=== PATIENT | female | born 2000 | race Caucasian/White ===

== ENCOUNTER 2021-05-12 21:02 | Inpatient (IN) | payer MEDICAID, OTHER ==
[2021-05-12] MEDS ORDERED: LACTATED RINGERS 1,000 ML ONE (22:13)
[2021-05-12] MEDS ORDERED: METHYLERGONOVINE MALEATE 0.2 MG/ML VIAL IM PRN ×2 (22:22→22:27)
[2021-05-12] MEDS ORDERED: miSOPROStol 200 MCG TAB PR PRN ×2 (22:22→22:27)
[2021-05-12] MEDS ORDERED: LIDOCAINE (2%) 20 MG/1 ML VIAL 20 ML MDV INFILTRATI ONE ×2 (22:22→22:27)
[2021-05-12] MEDS ORDERED: TERBUTALINE 1 MG/1 ML INJ SUB-Q PRN ×2 (22:22→22:27)
[2021-05-12] MEDS ORDERED: LOPERAMIDE 2 MG CAP PO PRN ×2 (22:22→22:27)
[2021-05-12] MEDS ORDERED: ACETAMINOPHEN 325 MG TAB PO PRN (22:22)
[2021-05-12] MEDS ORDERED: BUTORPHANOL 2 MG/1 ML INJ IV PRN ×2 (22:22)
[2021-05-12] MEDS ORDERED: OXYTOCIN 10 UNIT/1 ML INJ IM PRN ×2 (22:22→22:27)
[2021-05-12] MEDS ORDERED: CARBOPROST TROMETHAMINE 250 MCG/1 ML INJ IM PRN ×2 (22:22→22:27)
[2021-05-12] MEDS ORDERED: ONDANSETRON 4 MG/2 ML INJ IV PRN (22:22)
[2021-05-12] MEDS ORDERED: MINERAL OIL 30 ML ORAL LIQD PO PRN ×2 (22:22→22:27)
[2021-05-12] MEDS ORDERED: ePHEDrine SULFATE 50 MG/1 ML INJ IV PRN ×2 (22:22→22:27)
[2021-05-12] MEDS ORDERED: LACTATED RINGERS 1,000 ML IV SCH ×2 (22:30)
[2021-05-12] MEDS ORDERED: OXYTOCIN DRIP 30 UNITS/500 ML BAG IV SCH ×4 (23:00)
[2021-05-12 23:45] LABS: Hematocrit 34.7 % (30.3-42.9); Hemoglobin 12.5 gm/dl (10.1-14.3); Mean Corpuscular HGB Conc 36 % (30-34); Mean Corpuscular Volume 97 fl (79-97); Platelet Count 191 K/mm3 (140-440); Red Cell Distribution Width 13.8 % (13.2-15.2)
[2021-05-12 23:52] LABS: Bilirubin,Urine NEG (Negative); Blood,Urine MOD (Negative); Color,Urine Straw (Yellow); Protein,Urine <15 mg/dL mg/dL (Negative); Urobilinogen,Urine < 2.0 mg/dL (<2.0)
[2021-05-13] MEDS ORDERED: LIDOCAINE (2%) 20 MG/1 ML VIAL 20 ML MDV INFILTRATI ONE (02:08)
[2021-05-13] MEDS ORDERED: PROMETHAZINE 25 MG RECT SUPP PR PRN (02:42)
[2021-05-13] MEDS ORDERED: MAGNESIUM HYDROXIDE (MOM) ORAL LIQD UDC PO PRN (02:42)
[2021-05-13] MEDS ORDERED: ONDANSETRON 4 MG/2 ML INJ IV PRN (02:42)
[2021-05-13] MEDS ORDERED: PROMETHAZINE 25 MG TAB PO PRN (02:42)
[2021-05-13] MEDS ORDERED: diphenhydrAMINE 25 MG CAP PO PRN (02:42)
[2021-05-13] MEDS ORDERED: LANOLIN/ZINC/DIMETHICONE (LANSINOH) 7 GM TP PRN (02:42)
[2021-05-13] MEDS ORDERED: WITCH HAZEL/ GLYCERIN PAD TP PRN (02:42)
[2021-05-13] MEDS ORDERED: oxyCODONE /ACETAMINOPHEN 5-325MG TAB PO PRN (02:47)
[2021-05-13] MEDS ORDERED: ACETAMINOPHEN 325 MG TAB PO PRN (02:53)
[2021-05-13] MEDS ORDERED: HYDROcodone/ACETAMINOPHEN 5-325 MG TAB PO PRN (02:53)
--- NOTE | 2021-05-13 02:59 | History and Physical Report ---
History of Present Illness Date of examination: 05/13/21 Date of admission: 05/13/21 00:35 Chief complaint: labor History of present illness: Patient is a 20-year-old female 2 para 1-0-0-1 EDC is 05/26/2021. She has been cared for at the [facility]. She had 4 visits at the clinic her hematocrit was 35.8%. Her HIV test was nonreactive her quad screen was negative blood type O+ RPR nonreactive hepatitis B was nonreactive rubella was immune Chlamydia and gonorrhea tests were negative HIV test repeat was also negative. The patient presented as a patient in labor today. Past medical history was negative and family medical history was negative her infection history was also negative. Expectant vaginal delivery. Past History Past Medical History: no pertinent history Past Surgical History: no surgical history Family/Genetic History: none Social history: - Obstetrical History Expected Date of Delivery: 05/30/21 Actual Gestation: 37 Week(s) 4 Day(s) : 2 Para: 1 Hx # Term Pregnancies: 1 Number of Pregnancies: 0 Spontaneous Abortions: 0 Induced : 0 Number of Living Children: 1 Medications and Allergies Allergies Allergy/AdvReac Type Severity Reaction Status Date / Time No Known Allergies Allergy Unverified 08/31/15 18:00 Home Medications Medication Instructions Recorded Confirmed Last Taken Type One Daily Tablet 1 tab PO DAILY 05/13/21 05/13/21 05/11/21 20:00 History Active Meds: Active Medications Acetaminophen (Acetaminophen 325 Mg Tab) 650 mg PO Q4H PRN PRN Reason: Pain, Mild (1-3) Butorphanol Tartrate (Butorphanol 2 Mg/1 Ml Inj) 1 mg IV Q2H PRN PRN Reason: Pain, Moderate(4-6) LABOR PAIN Butorphanol Tartrate (Butorphanol 2 Mg/1 Ml Inj) 2 mg IV Q2H PRN PRN Reason: Pain , Severe (7-10) Carboprost Tromethamine (Carboprost Tromethamine 250 Mcg/1 Ml Inj) 250 mcg IM ONCE PRN PRN Reason: Uterine Bleeding Ephedrine Sulfate (Ephedrine Sulfate 50 Mg/1 Ml Inj) 10 mg IV Q2M PRN PRN Reason: Hypotension Oxytocin/Sodium Chloride (Pitocin/Ns 30 Unit/500ml) 30 units in 500 mls @ 2 mls/hr IV TITR ETIENNE; Protocol Last Admin: 05/13/21 00:51 Dose: 2 ml/hr, 2 mls/hr Documented by: Lactated Ringer's (Lactated Ringers) 1,000 mls @ 125 mls/hr IV DIRECT ETIENNE Oxytocin/Sodium Chloride (Pitocin/Ns 30 Unit/500ml) 30 units in 500 mls @ 40 mls/hr IV TITR ETIENNE; Protocol Loperamide HCl (Loperamide 2 Mg Cap) 2 mg PO ONCE PRN PRN Reason: give with Hemabate Methylergonovine Maleate (Methylergonovine Maleate 0.2 Mg/Ml Vial) 0.2 mg IM ONCE PRN PRN Reason: Uterine Bleeding Mineral Oil (Mineral Oil 30 Ml Oral Liqd) 30 ml PO QHS PRN PRN Reason: Constipation Misoprostol (Misoprostol 200 Mcg Tab) 800 mcg MT ONCE PRN PRN Reason: Uterine Bleeding Ondansetron HCl (Ondansetron 4 Mg/2 Ml Inj) 4 mg IV Q8H PRN PRN Reason: Nausea And Vomiting Oxycodone/Acetaminophen (Oxycodone /Acetaminophen 5-325mg Tab) 1 tab PO Q4H PRN PRN Reason: Pain, Moderate (4-6) Oxytocin (Oxytocin 10 Unit/1 Ml Inj) 10 unit IM ONCE PRN PRN Reason: Uterine Bleeding Terbutaline Sulfate (Terbutaline 1 Mg/1 Ml Inj) 0.25 mg SUB-Q ONCE PRN PRN Reason: Hyperstimulation/Hypertonicity Review of Systems All systems: negative - Vital Signs Vital signs: Vital Signs Pulse Ox 98 05/12/21 21:17 Temp Pulse Resp BP Pulse Ox 97.8 F 86 17 114/58 98 05/13/21 00:37 05/13/21 02:52 05/13/21 00:37 05/13/21 02:28 05/13/21 02:52 - Physical Exam Breasts: Cardiovascular: Regular rate, Normal S1, Normal S2 Lungs: Positive: Clear to auscultation, Normal air movement Abdomen: Positive: normal appearance, soft, normal bowel sounds. Negative: distention, tenderness Genitourinary (Female): Positive: normal external genitalia Vulva: both: normal Vagina: Positive: normal moisture Cervix: Positive: other (4cm dilated,bow intact.). Negative: lesion, discharge Uterus: Positive: normal size, enlarged (near term size), normal contour Adnexa: both: normal Anus/Rectum: Positive: normal perianal skin, heme negative. Negative: rectal mass, hemorrhoids - Obstetrical FHR: category 1 Uterine Contraction Monitor Mode: External Cervical Dilatation: 4 Cervical Effacement Percentage: 75 station: -3 Uterine Contraction Frequency (min): q5min Uterine Contraction Duration: 1min Uterine Contraction Pattern: Regular Uterine Tone Measurement Phase: Resting Uterine Contraction Intensity: Moderate Results Result Diagrams: 05/12/21 23:00 Abnormal lab results 05/12/21 Range/Units 23:00 RBC 3.60 L (3.65-5.03) M/mm3 MCH 35 H (28-32) pg MCHC 36 H (30-34) % All other labs normal. Assessment and Plan 38 wks iup ,active labor. plan vag delivery.
--- NOTE | 2021-05-13 03:06 | Procedure Note ---
Date of procedure: 05/13/21 Pre-op diagnosis: 38 wks iup,active labor Post-op diagnosis: same Procedure: Delivery note. " Vaginal delivery. Male . Apgars 8 and 9. Weight 7 pounds 9 ounces. No tenderness rectal mucosa was intact placenta delivered spontaneously. The patient tolerated procedure well without anesthesia. Anesthesia: none Surgeon: RENALDO MEMBRENO Estimated blood loss: other (200ccs) Pathology: none Specimen disposition: discarded Condition: stable Disposition: observation
[2021-05-13] MEDS: IBUPROFEN 600 MG TAB PO SCH ×4 (05:53→23:39)
[2021-05-13 17:46] LABS: Hematocrit 28.7 % (30.3-42.9); Hemoglobin 10.1 gm/dl (10.1-14.3)
[2021-05-14] MEDS: IBUPROFEN 600 MG TAB PO SCH ×2 (05:32→11:42)
[2021-05-14 09:04] VITALS: BP 101/66
--- NOTE | 2021-05-14 11:05 | Progress Note ---
Assessment and Plan A: S/P P: D/C home per pt's request Subjective - Subjective Date of service: 05/14/21 Principal diagnosis: s/p Patient reports: appetite normal, voiding normally, pain well controlled, ambulating normally : doing well, bottle feeding Objective - Vital Signs Latest vital signs: Vital Signs Temp Pulse Resp BP BP Pulse Ox Pulse Ox 05/14/21 09:43 99 05/14/21 08:37 97.8 F 85 18 101/66 97 05/14/21 05:32 20 05/14/21 01:00 98.6 F 77 16 114/78 05/13/21 23:39 18 05/13/21 20:10 99 05/13/21 20:04 98.0 F 96 H 18 100/58 97 05/13/21 15:58 98.5 F 88 18 99/60 97 05/13/21 12:10 98.1 F 79 18 91/51 Intake and Output 05/13/21 05/14/21 05/14/21 22:59 06:59 14:59 Intake Total 1220 200 320 Output Total 1050 Balance 170 200 320 Intake: Oral 560 200 320 Intake, Free Water 660 Output: Urine 1050 Void 1050 Other: Total, Intake Amount 240 200 320 Total, Output Amount 450 # Voids Void 1 1 1 - Exam Breasts: Present: normal Abdomen: Present: normal appearance, soft, normal bowel sounds Vulva: both: normal Uterus: Present: normal, firm, fundal height below umbilicus Extremities: Present: normal - Labs Labs: Abnormal lab results 05/13/21 Range/Units 17:26 Hct 28.7 L D (30.3-42.9) %
--- NOTE | 2021-05-14 11:11 | Discharge Summary ---
Providers - Providers Date of Admission: 05/13/21 02:43 Date of discharge: 05/14/21 Attending physician: RENALDO MEMBRENO MD Primary care physician: RENALDO MEMBRENO MD Hospitalization Reason for admission: active labor, IUP at term Delivery: Episiotomy: none Laceration: none Other procedures: none complications: none Discharge diagnosis: IUP at term delivered [place] baby: male Condition at discharge: Stable Disposition: DC-01 TO HOME OR SELFCARE Plan - Discharge Medications Prescriptions: Ibuprofen [Motrin 600 MG tab] 600 mg PO Q6H #30 tablet - Provider Discharge Summary Activity: routine, no sex for 6 weeks, no heavy lifting 4 weeks, no strenuous exercise Diet: routine Instructions: routine Additional instructions: [] Smoking cessation referral if applicable(refer to patient education folder for contact #) [] Refer to [facility]'s [facility] Booklet Call your doctor immediately for: * Fever > 100.5 * Heavy vaginal bleeding ( >1 pad per hour) * Severe persistent headache * Shortness of breath * Reddened, hot, painful area to leg or breast * Drainage or odor from incision. * Keep incision clean and dry at all times and follow doctor's instructions regarding bathing/showering - Follow up plan Follow up: RENALDO MEMBRENO MD [Primary Care Provider] - 6 Weeks
== END 2021-05-14 15:30 | disposition home or self-care (01) | DRG 807 ==
LOC: TRG 21:02 → APU 21:04 → LD 05-13 00:35 → TRG 05-13 00:35 → OBSVTOIN 05-13 02:43 → LD 05-13 02:43 → OB 05-13 04:27
PROC: 10E0XZZ Delivery of Products of Conception, External Approach (ICD-10-PCS; principal; 2021-05-13)
DX: O80 Encounter for full-term uncomplicated delivery (principal); Z37.0 Single live birth; Z20.822 Contact with and (suspected) exposure to COVID-19; Z3A.38 38 weeks gestation of pregnancy
CPT/HCPCS: 36415; 81001; 85014; 85018; 85027; 86592; 86850; 86900; 86901; G0378; J2590; J7120; U0003